=== PATIENT | male | born 1975 | race Two or more races ===

== ENCOUNTER 2017-11-19 23:06 | Emergency (ER) | payer OTHER ==
[~2017-11-19] VITALS: Ht 165.1 cm; Wt 124.3 kg
[2017-11-19 23:48] LABS: Basophils # (auto) 0.2 uL; Basophils % (auto) 3.5 % (0.0-2.0); Eosinophils # (auto) 0.1 uL; Eosinophils % (auto) 1.3 % (0.0-7.0); Hemoglobin 15.3 g/dL (13.5-17.5); Lymphocytes # (auto) 1.3 uL; Mean Corpuscular Hemoglobin 30.6 pg (28.0-32.0); Mean Corpuscular Hgb Conc. 33.9 g/dL (32.0-36.0); Mean Corpuscular Volume 90.3 fL (80.0-100.0); Monocytes # (auto) 0.4 uL; Monocytes % (auto) 6.3 % (0.0-12.0); Neutrophils # (auto) 4.9 uL; Neutrophils % (auto) 69.9 % (37.0-80.0); Nucleated Red Blood Cells % 0.1 %; Platelet Count (auto) 147 10^3/uL (140-450); Red Blood Cells 4.99 10^6/uL (4.5-5.90); Red Cell Distribution Width 12.8 % (11.8-14.3)
[2017-11-19] MEDS ORDERED: IOHEXOL 300 MG/ML 100ML BOTTLE IJ ONE (23:48)
[2017-11-20 00:04] LABS: Albumin 3.8 g/dL (3.4-5.0); BUN/Creatinine Ratio 17.8
[2017-11-20 00:05] LABS: INR 1.02 (0.9-1.15); Partial Thromboplastin Time 26.9 sec (23.78-33.04); Prothrombin Time 10.9 sec (9.27-12.13)
[2017-11-20 00:06] LABS: Bilirubin, Total 0.6 mg/dL (0.2-1.0); Total Protein 7.6 g/dL (6.4-8.2)
[2017-11-20 04:50] VITALS: BP 125/68
== END 2017-11-20 06:30 | disposition home or self-care (01) ==
LOC: ER 23:13
DX: K42.9 Umbilical hernia without obstruction or gangrene (principal); K57.90 Diverticulosis of intestine, part unspecified, without perforation or abscess without bleeding; K40.20 Bilateral inguinal hernia, without obstruction or gangrene, not specified as recurrent; K76.0 Fatty (change of) liver, not elsewhere classified; R16.1 Splenomegaly, not elsewhere classified
CPT/HCPCS: 36415; 74177; 80053; 82150; 83690; 85025; 85610; 85730; 93005; 99285; Q9967